=== PATIENT | female | born 1960 | race Caucasian/White ===

== ENCOUNTER → 2017-12-07 | Outpatient (CLI) | payer BC ==
[~2017-12-07] MED LIST: ACETAMINOPHEN-1 EAC1 PO; ACYCLOVIR 400400 MG PO; ADULT LOW DOSE81 MG PO; AUGMENTIN 875875 MG PO; AZITHROMYCIN 2250 MG PO; CALCIUM 500 +1 EAC4 PO; CENTANY30 GM TOP; CIPRO500 MG PO; CIPROFLOXACIN500 M3 GT; COLESTIPOL HCL1 G1 PO; COUMADIN 2 MG TA2 M1 PO; COUMADIN 3 MG TA3 M1 PO; COUMADIN 3 MG TA3 MG PO; COZAAR100 MG PO; DESIPRAMINE 50M50 M1 PO; DYAZIDE PO; FISH OIL 1,001000 MG PO; FLAGYL500 MG PO; HCTZ; HYDRALAZINE 2525 MG PO; HYDROCHLOROTHIA25 M2 PO; HYDROCODON-ACE1 EAC7 PO; HYDROCODONE-APA1 TA1 PO; IBUPROFEN 800800 M1 PO; LEVOXYL125 MCG PO; LEXAPRO; LEXAPRO20 MG PO; LIPITOR 20 MG T20 M1 PO; LIPITOR40 MG PO; LISINOPRIL20 MG PO; LISINOPRIL40 MG PO; LOPRESSOR PO; MEDROLDOSEPACK PO; NORCO 5-325 TA1 EACH PO; NORFLEX100 MG PO; NORVASC10 MG PO; NORVASC5 MG PO; OSCIMIN0.125 M1 PO; OZEMPIC0.25 MG/0. SUBQ; PEPCID40 MG PO; PERCOCET 5-3251 EACH PO; POTASSIUM20; PREDNISONE 20 M20 M1 PO; PREMARIN0.3 MG PO; PRINIVIL20 MG PO; PROMETHAZINE-C120 ML PO; PROPAFENONE 15150 MG PO; PROTONIX40 M2 PO; PROZAC; ROBAXIN 750 MG750 M1 PO; RYTHMOL; RYTHMOL SR325 MG PO; SAVELLA50 MG PO; SIMVASTATIN40 MG PO; SORINE 80 MG TA80 M1 PO; SORINE 80 MG TA80 MG PO; SPIRONOLACTONE50 MG PO; SYNTHROID PO; SYNTHROID112 MC1 PO; SYNTHROID125 MCG PO; TESSALON PERLE100 M1 PO; TOPROL XL25 MG PO; TRAMADOL 50 MG50 MG PO; TYLENOL EXTRA500 MG PO; ULTRAM 50MG TAB50 MG PO; VIBRAMYCIN 100100 M2 PO; WELLBUTRIN XL150 MG PO; XARELTO20 MG PO; ZOFRAN ODT4 MG PO; ZOFRAN4 MG PO
== END ==
LOC: M.MRI 11-26 16:08
DX: M47.26 Other spondylosis with radiculopathy, lumbar region (principal); M85.89 Other specified disorders of bone density and structure, multiple sites; M76.9 Unspecified enthesopathy, lower limb, excluding foot; N28.1 Cyst of kidney, acquired; Z78.0 Asymptomatic menopausal state

== ENCOUNTER 2018-01-23 20:36 | Emergency (ER) | payer BC ==
[~2018-01-23] VITALS: Ht 162.6 cm; Wt 114.3 kg
[~2018-01-23 20:36] MED LIST changes: -CENTANY30 GM TOP; -COLESTIPOL HCL1 G1 PO; -COZAAR100 MG PO; -HYDRALAZINE 2525 MG PO; -LEVOXYL125 MCG PO; -LEXAPRO20 MG PO; -NORVASC5 MG PO; -OSCIMIN0.125 M1 PO; -OZEMPIC0.25 MG/0. SUBQ; -PREDNISONE 20 M20 M1 PO; -PROPAFENONE 15150 MG PO; -ROBAXIN 750 MG750 M1 PO; -SPIRONOLACTONE50 MG PO; -SYNTHROID112 MC1 PO; -TYLENOL EXTRA500 MG PO; -VIBRAMYCIN 100100 M2 PO; -WELLBUTRIN XL150 MG PO; -XARELTO20 MG PO
[2018-01-23] MEDS ORDERED: HYDRALAZINE 2525 MG PO (20:49)
[2018-01-23] MEDS ORDERED: COLESTIPOL HCL1 G1 PO (20:49)
[2018-01-23] MEDS ORDERED: WELLBUTRIN XL150 MG PO (20:50)
[2018-01-23] MEDS ORDERED: COZAAR100 MG PO (20:50)
[2018-01-23] MEDS ORDERED: OSCIMIN0.125 M1 PO (20:50)
[2018-01-23] MEDS ORDERED: NORVASC5 MG PO (20:51)
[2018-01-23] MEDS ORDERED: LEXAPRO20 MG PO (20:51)
[2018-01-23] MEDS ORDERED: SORINE 80 MG TA80 MG PO (20:51)
[2018-01-23] MEDS ORDERED: LEVOXYL125 MCG PO (20:52)
[2018-01-23] MEDS ORDERED: SPIRONOLACTONE50 MG PO (20:52)
[2018-01-23] MEDS ORDERED: XARELTO20 MG PO (20:52)
[2018-01-23] MEDS ORDERED: HYDROCODON-ACE1 EAC7 PO (22:19)
[2018-01-23 22:30] VITALS: BP 148/82
[2018-07-05] MEDS ORDERED: SYNTHROID112 MC1 PO (13:14)
[2018-07-05] MEDS ORDERED: PROPAFENONE 15150 MG PO (13:15)
[2018-07-05] MEDS ORDERED: OZEMPIC0.25 MG/0. SUBQ (13:16)
[2018-07-05] MEDS ORDERED: TYLENOL EXTRA500 MG PO (13:17)
== END 2018-01-23 22:30 | disposition home or self-care (01) ==
LOC: M.ERS 20:36
DX: S80.12XA Contusion of left lower leg, initial encounter (principal); I48.91 Unspecified atrial fibrillation; K21.9 Gastro-esophageal reflux disease without esophagitis; I10 Essential (primary) hypertension; G47.30 Sleep apnea, unspecified; E05.90 Thyrotoxicosis, unspecified without thyrotoxic crisis or storm; Z90.711 Acquired absence of uterus with remaining cervical stump; Z90.49 Acquired absence of other specified parts of digestive tract; W18.39XA Other fall on same level, initial encounter; Y93.89 Activity, other specified; Y92.89 Other specified places as the place of occurrence of the external cause; Y99.8 Other external cause status

== ENCOUNTER 2018-02-02 19:28 | Emergency (ER) | payer BC ==
[~2018-02-02] VITALS: Ht 162.6 cm; Wt 119.8 kg
[~2018-02-02 19:28] MED LIST changes: +COLESTIPOL HCL1 G1 PO; +COZAAR100 MG PO; +HYDRALAZINE 2525 MG PO; +LEVOXYL125 MCG PO; +LEXAPRO20 MG PO; +NORVASC5 MG PO; +OSCIMIN0.125 M1 PO; +SPIRONOLACTONE50 MG PO; +WELLBUTRIN XL150 MG PO; +XARELTO20 MG PO
[2018-02-02] MEDS ORDERED: ROBAXIN 750 MG750 M1 PO (20:13)
[2018-02-02] MEDS ORDERED: NORCO 5-325 TA1 EACH PO (20:13)
[2018-02-02] MEDS ORDERED: PREDNISONE 20 M20 M1 PO (20:13)
[2018-02-02 20:31] VITALS: BP 184/102
[2018-07-05] MEDS ORDERED: SYNTHROID112 MC1 PO (13:14)
[2018-07-05] MEDS ORDERED: PROPAFENONE 15150 MG PO (13:15)
[2018-07-05] MEDS ORDERED: OZEMPIC0.25 MG/0. SUBQ (13:16)
[2018-07-05] MEDS ORDERED: TYLENOL EXTRA500 MG PO (13:17)
== END 2018-02-02 20:37 | disposition home or self-care (01) ==
LOC: M.ERS 19:28
DX: M54.42 Lumbago with sciatica, left side (principal); I48.91 Unspecified atrial fibrillation; K21.9 Gastro-esophageal reflux disease without esophagitis; I10 Essential (primary) hypertension; G47.30 Sleep apnea, unspecified; F32.9 Major depressive disorder, single episode, unspecified; E05.90 Thyrotoxicosis, unspecified without thyrotoxic crisis or storm; Z90.49 Acquired absence of other specified parts of digestive tract

== ENCOUNTER 2018-04-03 12:51 | Emergency (ER) | payer BC ==
[~2018-04-03] VITALS: Ht 162.6 cm; Wt 121.6 kg
[~2018-04-03 12:51] MED LIST changes: +PREDNISONE 20 M20 M1 PO; +ROBAXIN 750 MG750 M1 PO
[2018-04-03 13:09] LABS: URINE BILIRUBIN NEGATIVE (Negative); URINE BLOOD NEGATIVE (Negative); URINE CLARITY CLEAR; URINE COLOR YELLOW; URINE GLUCOSE-RANDOM NEGATIVE (Negative); URINE KETONES NEGATIVE (Negative); URINE LEUKOCYTES-REFLEX NEGATIVE (Negative); URINE NITRITE-REFLEX NEGATIVE (Negative); URINE PROTEIN NEGATIVE (Negative); URINE SPECIFIC GRAVITY 1.025 (1.005-1.030); URINE UROBILINOGEN 0.2 E.U./dl (0.2-1.0)
[2018-04-03 13:23] LABS: ABSOLUTE LYMPHOCYTES 1.6 thou/uL (0.8-5.3); ABSOLUTE MONOCYTES 0.5 thou/uL (0.0-1.2); ABSOLUTE NEUTROPHILS 5.2 thou/uL (1.6-8.1); BASOPHILS 0.6 %; EOSINOPHILS 0.3 %; HEMATOCRIT 42.8 % (37.0-47.0); LYMPHOCYTES 21.5 %; MCH 29.7 pg (26.0-34.0); MCHC 32.8 g/dL (28.0-37.0); MCV 90.7 fL (80.0-100.0); MONOCYTES 7.4 %; MPV 7.2 fl. (7.2-11.1); NUCLEATED RBCS 0 /100WBC; PLATELET COUNT* 283 thou/uL (150-400); POLYS 70.2 %; RBC 4.72 mil/uL (4.20-5.00); WBC 7.4 thou/uL (4.0-11.0)
[2018-04-03 13:32] LABS: ANION GAP 7 mmol/L (7-16); BUN 26 mg/dL (7-18); CHLORIDE 104 mmol/L (98-107); CO2 33 mmol/L (21-32); GLUCOSE 97 mg/dL (70-99); SODIUM 144 mmol/L (136-145)
[2018-04-03 13:39] LABS: ALBUMIN 3.7 g/dL (3.4-5.0); ALKALINE PHOSPHATASE 81 U/L (46-116); SGOT 13 U/L (15-37); SGPT 27 U/L (30-65); TOTAL BILIRUBIN 0.6 mg/dL (<0.1-1.0); TOTAL PROTEIN 6.9 g/dL (6.4-8.2); TROPONIN-I LEVEL <0.06 ng/mL (<0.06)
[2018-04-03 14:49] VITALS: BP 149/53
--- NOTE | 2018-04-03 18:06 | EKG ---
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 : 1960 Requested By: Karime Arizmendi Order Number: [id number] MD: Rolando Spears Measurements Intervals [place] Rate: 50 P: 11 NE: 167 QRS: -21 QRSD: 100 T: 63 QT: 459 QTc: 419 Interpretive Statements Sinus rhythm Abnormal R-wave progression, early transition LVH with secondary repolarization abnormality Compared to ECG 02/13/2017 17:27:37 Early repolarization now present Electronically Signed On 04-03-2018 18:06:30 CDT by Rolando Spears [email or web address] <ELECTRONICALLY SIGNED> By: Rolando Spears MD, [facility] 04/03/18 1806 1339 38 Rolando Spears MD, [facility] /EPI
[2018-07-05] MEDS ORDERED: SYNTHROID112 MC1 PO (13:14)
[2018-07-05] MEDS ORDERED: PROPAFENONE 15150 MG PO (13:15)
[2018-07-05] MEDS ORDERED: OZEMPIC0.25 MG/0. SUBQ (13:16)
[2018-07-05] MEDS ORDERED: TYLENOL EXTRA500 MG PO (13:17)
== END 2018-04-03 14:50 | disposition home or self-care (01) ==
LOC: M.ERS 12:51
PROVIDERS: Nurse Practitioner Family
DX: I10 Essential (primary) hypertension (principal); Z90.710 Acquired absence of both cervix and uterus

== ENCOUNTER 2018-08-03 05:49 | Emergency (ER) | payer BC ==
[~2018-08-03] VITALS: Ht 162.6 cm; Wt 106.1 kg
[~2018-08-03 05:49] MED LIST changes: +OZEMPIC0.25 MG/0. SUBQ; +PROPAFENONE 15150 MG PO; +SYNTHROID112 MC1 PO; +TYLENOL EXTRA500 MG PO
[2018-08-03 06:00] VITALS: BP 147/84
[2018-08-03] MEDS ORDERED: VIBRAMYCIN 100100 M2 PO (06:08)
[2018-08-03] MEDS ORDERED: CENTANY30 GM TOP (06:08)
== END 2018-08-03 06:15 | disposition home or self-care (01) ==
LOC: M.ERS 05:49
DX: S40.862A Insect bite (nonvenomous) of left upper arm, initial encounter (principal); Z90.711 Acquired absence of uterus with remaining cervical stump; Z98.890 Other specified postprocedural states; Z90.49 Acquired absence of other specified parts of digestive tract; W57.XXXA Bitten or stung by nonvenomous insect and other nonvenomous arthropods, initial encounter; Y93.89 Activity, other specified; Y92.89 Other specified places as the place of occurrence of the external cause; Y99.8 Other external cause status

== ENCOUNTER → 2018-11-08 | Outpatient (CLI) | payer BC ==
[~2018-11-08] MED LIST changes: +CENTANY30 GM TOP; +CYMBALTA30 MG PO; +FLECAINIDE ACET50 M1 PO; +METOPROLOL SUCC50 MG PO; +PRADAXA150 MG PO; +SYNTHROID125 MC1 PO; +VIBRAMYCIN 100100 M2 PO
== END ==
LOC: M.MRI 15:51
DX: S46.811A Strain of other muscles, fascia and tendons at shoulder and upper arm level, right arm, initial encounter (principal); M19.011 Primary osteoarthritis, right shoulder; X58.XXXA Exposure to other specified factors, initial encounter; Y93.89 Activity, other specified; Y92.89 Other specified places as the place of occurrence of the external cause; Y99.8 Other external cause status; Z98.890 Other specified postprocedural states

== ENCOUNTER → 2018-11-19 | Outpatient (CLI) | payer BC | LOC: M.MRI 15:59 | DX: M50.11 Cervical disc disorder with radiculopathy, high cervical region (principal); M48.02 Spinal stenosis, cervical region ==

== ENCOUNTER 2018-12-13 18:52 | Emergency (ER) | payer BC ==
[~2018-12-13] VITALS: Ht 162.6 cm; Wt 106.6 kg
[2018-12-13] MEDS ORDERED: KEFLEX500 M1 PO (19:12)
[2018-12-13] MEDS ORDERED: BACTRIM DS TAB1 EACH PO (19:12)
[2018-12-13] MEDS ORDERED: CENTANY30 GM TOP (19:12)
[2018-12-13] MEDS ORDERED: ACETAMINOPHEN-1 EAC1 PO (19:14)
[2018-12-13 19:25] VITALS: BP 156/82
== END 2018-12-13 19:25 | disposition home or self-care (01) ==
LOC: M.ERS 18:52
DX: R21 Rash and other nonspecific skin eruption (principal); I10 Essential (primary) hypertension; G47.33 Obstructive sleep apnea (adult) (pediatric); E66.9 Obesity, unspecified; Z68.41 Body mass index [BMI] 40.0-44.9, adult; I48.91 Unspecified atrial fibrillation; Z90.49 Acquired absence of other specified parts of digestive tract; Z90.710 Acquired absence of both cervix and uterus; Z91.040 Latex allergy status

== ENCOUNTER 2019-01-07 11:37 | Emergency (ER) | payer BC ==
[~2019-01-07] VITALS: Ht 162.6 cm; Wt 113.4 kg
[~2019-01-07 11:37] MED LIST changes: +BACTRIM DS TAB1 EACH PO; +KEFLEX500 M1 PO
[2019-01-07 11:51] LABS: ABSOLUTE EOSINOPHILS 0.1 thou/uL (0.0-0.7); ABSOLUTE LYMPHOCYTES 1.3 thou/uL (0.8-5.3); ABSOLUTE MONOCYTES 0.3 thou/uL (0.0-1.2); ABSOLUTE NEUTROPHILS 2.5 thou/uL (1.6-8.1); EOSINOPHILS 1.9 %; HEMATOCRIT 40.6 % (37.0-47.0); HEMOGLOBIN 13.3 gm/dL (12.0-15.0); LYMPHOCYTES 31.1 %; MCH 28.9 pg (26.0-34.0); MCHC 32.9 g/dL (28.0-37.0); MCV 87.9 fL (80.0-100.0); MONOCYTES 6.3 %; MPV 6.8 fl. (7.2-11.1); NUCLEATED RBCS 0 /100WBC; PLATELET COUNT* 233 thou/uL (150-400); POLYS 59.7 %; RBC 4.62 mil/uL (4.20-5.00); RDW-CV 14.7 % (10.5-14.5); WBC 4.3 thou/uL (4.0-11.0)
[2019-01-07 12:06] LABS: ANION GAP 7 mmol/L (7-16); APTT 26.6 Seconds (25.0-31.3); BUN 15 mg/dL (7-18); CALCIUM 9.2 mg/dL (8.5-10.1); CHLORIDE 106 mmol/L (98-107); CO2 34 mmol/L (21-32); CREATININE 0.8 mg/dL (0.6-1.3); GLUCOSE 111 mg/dL (70-99); POTASSIUM 3.5 mmol/L (3.5-5.1); PROTIME 9.9 Seconds (9.20-11.50); SODIUM 147 mmol/L (136-145); TROPONIN-I LEVEL <0.06 ng/mL (<0.06)
[2019-01-07 12:22] LABS: ALBUMIN 3.7 g/dL (3.4-5.0); ALKALINE PHOSPHATASE 79 U/L (46-116); SGOT 19 U/L (15-37); SGPT 27 U/L (30-65); TOTAL BILIRUBIN 0.4 mg/dL (<0.1-1.0); TOTAL PROTEIN 7.1 g/dL (6.4-8.2)
[2019-01-07 13:02] VITALS: BP 149/73
--- NOTE | 2019-01-07 16:01 | EKG ---
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 : 1960 Requested By: Bi Jha Order Number: [id number] MD: Owen Urena Measurements Intervals [place] Rate: 77 P: 15 [place]: 171 QRS: -31 QRSD: 102 T: 55 QT: 390 QTc: 442 Interpretive Statements Sinus rhythm Abnormal R-wave progression, late transition LVH with secondary repolarization abnormality Compared to ECG 04/03/2018 13:39:26 No significant changes Electronically Signed On 01-07-2019 16:01:10 CDT by Owen Urena [email or web address] <ELECTRONICALLY SIGNED> By: Owen Urena MD, [facility] 01/07/19 1601 1151 115 Owen Urena MD, [facility] /EPI
== END 2019-01-07 13:02 | disposition home or self-care (01) ==
LOC: M.ERS 11:37
PROVIDERS: Family Medicine
DX: R20.2 Paresthesia of skin (principal); R51 Headache; I48.91 Unspecified atrial fibrillation; I10 Essential (primary) hypertension; G47.33 Obstructive sleep apnea (adult) (pediatric); E66.9 Obesity, unspecified; Z68.41 Body mass index [BMI] 40.0-44.9, adult; Z90.711 Acquired absence of uterus with remaining cervical stump; Z91.040 Latex allergy status; Z98.890 Other specified postprocedural states

== ENCOUNTER → 2019-10-02 | Outpatient (CLI) | payer BC ==
[~2019-10-02] MED LIST changes: +CRESTOR20 MG PO; +MOBIC15 MG PO; +NORVASC5 M1 PO
--- NOTE | ~2019-10-02 | PAINCON ---
[address] [address] PAIN MANAGEMENT CONSULTATION Name: LAQUITA RAMSEY Room: [facility]#: [id number] Admission: 10/02/19 Attend Phys: Isadora Giraldo MD Discharge: Date of : 62 Report #: [id number] THIS REPORT FOR: //name// CC: Eleonora Giraldo DATE OF SERVICE: 10/02/2019 PRIMARY CARE PHYSICIAN: Eleonora James MD CHIEF COMPLAINT: Low back pain. HISTORY: The patient is a 59-year-old female who has been referred to the Pain Clinic because of back pain. The patient is experiencing pain in her low back area. Notes that the pain radiates down into her left hip at times. She has found that has been quite problematic. In 2018, she fell. She had back pain similar to this. She is unable to sleep at night. She is unable to engage in activities of daily living because of this. She is unable to sit comfortably at home in a chair or recliner. Has difficulty at work because of the chronic pain. ALLERGIES: No known drug allergies. LATEX. MEDICATIONS: Extra Strength Tylenol, levothyroxine 125 mcg total of 250 mcg daily, Pradaxa 150 mg b.i.d., metoprolol 50 mg daily, hydralazine 25 mg t.i.d., losartan 100 mg daily, spironolactone 50 mg, Ozempic 0.25 mg subcutaneous weekly. PAST MEDICAL HISTORY: 1. Atrial fibrillation. 2. Obstructive sleep apnea. 3. Hypothyroidism. 4. Hypertension. 5. Depression/anxiety. 6. Right carotid artery disease. 7. Heart murmur. 8. Irritable bowel syndrome. 9. Diverticulosis. 10. Osteopenia. 11. Degenerative joint disease with lumbar radicular history. 12. History of GI bleed from diverticulitis in 01/2017. PAST SURGICAL HISTORY: 1. . 2. [place] [address] PAIN MANAGEMENT CONSULTATION Name: LAQUITA RAMSEY Room: [facility].#: [id number] Admission: 10/02/19 Attend Phys: Isadora Giraldo MD Discharge: Date of : 62 Report #: [id number] 3. Plates in the left foot. 4. Right shoulder in 10/2014. 5. Cholecystectomy. 6. Tonsillectomy. 7. Lumpectomy of left breast. 8. Eye surgery. PAIN CLINIC ASSESSMENT AND PQRS: 1. History of osteoarthritis. The patient has been diagnosed with degenerative joint disease in the low back area. She is not being treated for rheumatoid arthritis. 2. Height 5 feet 4 inches, weight 257 pounds, BMI is 44. 3. Vital signs: Blood pressure 146/104, heart rate 68, respiratory rate 16, room air saturation is 95%. 4. Temperature 98.2. 5. Pain intensity 8/10. 6. Fall history: The patient has not fallen in the last 3 months. 7. Blood thinner: The patient is not taking a blood thinner at this juncture. 8. Hypertension: The patient is not taking an opioid medication on a regular basis. 9. Risk assessment tool, low for opioid use. 10. Recreational drug use: The patient denies. 11. Tobacco: The patient has never smoked. 12. Alcohol: The patient denies frequent use of alcoholic beverages. PHYSICAL EXAMINATION: GENERAL: The patient is a well-developed, well-nourished, somewhat obese white female. She is alert and oriented x 3. Her affect is appropriate. Speech is fluent. HEENT: Normocephalic, atraumatic. Extraocular eye muscles intact. Sclerae nonicteric. Mucous membranes are moist. Hearing within normal limits. NECK: Without adenopathy or JVD. LUNGS: Distant lung sounds given the patient's body habitus. ABDOMEN: Protuberant. MUSCULOSKELETAL: Upper extremity muscle strength judged to be 5/5 for the major muscle groups in the upper extremity. The patient has pain and discomfort in the lower portion of her back. Palpation in the area of the left posterior-superior iliac spine area does cause a reproduction and exacerbation of the patient's pain, which she is experiencing. IMPRESSION: 1. Exacerbation of myofascial pain in low back area. 2. Atrial fibrillation history. 3. Obesity. 4. Obstructive sleep apnea. 5. [place] [address] PAIN MANAGEMENT CONSULTATION Name: LAQUITA RAMSEY LISSA Room: [facility]#: [id number] Admission: 10/02/19 Attend Phys: Isadora Giradlo MD Discharge: Date of : 62 Report #: [id number] 6. Hypertension. 7. Depression/anxiety. 8. Irritable bowel syndrome. 9. Diverticulitis with history of gastrointestinal bleed. 10. Osteopenia. 11. Degenerative joint disease. RECOMMENDATIONS: We discussed treatment options with the patient. At this juncture, she is having pain and discomfort in the lower portion of her back. She is quite problematic. She is unable to get comfortable. She is unable to sleep without tossing and turning. She had trigger point injections in the past. These were quite beneficial. She recalls simply turning over in bed and felt a popping sensation. Since that time, she has had pain, which has been unrelenting. She has returned today with the hopes of undergoing an injection into the low back area to help decrease the pain and discomfort, which she is experiencing. Risks and benefits of the procedure were discussed. They include but are not limited to infection, worsening of pain, no improvement in pain, nerve damage, bleeding, and the patient elects to proceed. PROCEDURE NOTE: The patient was taken to the procedure area. She was then assisted in getting on the examination table. Her back was sterilely prepped with a chlorhexidine solution and allowed to dry. The area on the left hip was palpated. The patient vocalized that this indeed was the area where her pain was originating from. A skin wheal was placed at this area using 0.5% bupivacaine. A 22-gauge Chiba needle was then advanced into the area of the trigger point. Aspiration was negative. The patient states that this was the area where her pain was originating from. A total of 8 mL of 0.5% bupivacaine and 80 mg Depo-Medrol was injected. The patient tolerated the procedure well. She remained in the Pain Clinic for an appropriate amount of time. She will follow up in the future as needed. We would like to thank you for letting us participate in her care. We hope she continues to improve. The area was in the left posterior-superior iliac spine area near the latissimus dorsi and the gluteus fercho. By: 1437 1514N. Mateusz Giraldo MD /gopal
== END | disposition home or self-care (01) ==
LOC: M.PC 08:27
DX: M79.18 Myalgia, other site (principal); M54.5 Low back pain; I10 Essential (primary) hypertension; E03.9 Hypothyroidism, unspecified; I48.91 Unspecified atrial fibrillation; F32.9 Major depressive disorder, single episode, unspecified; F41.9 Anxiety disorder, unspecified; G47.33 Obstructive sleep apnea (adult) (pediatric); M85.80 Other specified disorders of bone density and structure, unspecified site; E66.01 Morbid (severe) obesity due to excess calories; M19.90 Unspecified osteoarthritis, unspecified site; Z98.890 Other specified postprocedural states; Z79.899 Other long term (current) drug therapy; Z68.41 Body mass index [BMI] 40.0-44.9, adult; Z79.01 Long term (current) use of anticoagulants; Z87.19 Personal history of other diseases of the digestive system; Z90.49 Acquired absence of other specified parts of digestive tract; Z90.710 Acquired absence of both cervix and uterus

== ENCOUNTER 2020-05-24 19:56 | Inpatient (IN) | payer BC ==
[~2020-05-24] VITALS: Ht 162.6 cm; Wt 120.7 kg
[2020-05-24 20:02] VITALS: BP 151/58
[2020-05-24 20:57] LABS: ABSOLUTE BASOPHILS 0.1 thou/uL (0.0-0.2); ABSOLUTE EOSINOPHILS 0.1 thou/uL (0.0-0.7); ABSOLUTE LYMPHOCYTES 1.8 thou/uL (0.8-5.3); ABSOLUTE MONOCYTES 0.5 thou/uL (0.0-1.2); ABSOLUTE NEUTROPHILS 5.8 thou/uL (1.6-8.1); EOSINOPHILS 0.9 %; HEMOGLOBIN 13.4 gm/dL (12.0-15.0); LYMPHOCYTES 21.9 %; MCH 29.3 pg (26.0-34.0); MCHC 33.5 g/dL (28.0-37.0); MCV 87.5 fL (80.0-100.0); MONOCYTES 6.5 %; MPV 6.6 fl. (7.2-11.1); NUCLEATED RBCS 0 /100WBC; PLATELET COUNT* 264 thou/uL (150-400); POLYS 69.7 %; RBC 4.57 mil/uL (4.20-5.00); RDW-CV 14.4 % (10.5-14.5); WBC 8.3 thou/uL (4.0-11.0)
[2020-05-24 21:11] LABS: PROTIME 9.9 Seconds (9.20-11.50)
[2020-05-24 21:18] LABS: CALCIUM 8.6 mg/dL (8.5-10.1); CREATININE 0.9 mg/dL (0.6-1.3); POTASSIUM 4.5 mmol/L (3.5-5.1)
[2020-05-24 21:22] LABS: ALBUMIN 3.4 g/dL (3.4-5.0); TOTAL BILIRUBIN 0.5 mg/dL (<0.1-1.0); TOTAL PROTEIN 6.4 g/dL (6.4-8.2)
[2020-05-24 23:30] VITALS: BP 138/66
[2020-05-25] VITALS: BP 145/65
[2020-05-25 07:30] VITALS: BP 175/85
[2020-05-25] MEDS ORDERED: ELIQUIS5 MG PO (11:19)
[2020-05-25 12:00] VITALS: BP 182/100
[2020-05-25 16:00] VITALS: BP 168/67
--- NOTE | 2020-05-25 16:07 | EKG ---
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 : 1960 Requested By: Maritza Falcon Order Number: [id number] MD: Lio Cabrera Measurements Intervals [place] Rate: 61 P: 40 HI: 164 QRS: -23 QRSD: 98 T: -37 QT: 431 QTc: 434 Interpretive Statements Sinus rhythm Abnormal R-wave progression, late transition Left ventricular hypertrophy Nonspecific T abnormalities, inferior leads Compared to ECG 01/07/2019 11:51:12 T-wave abnormality now present Early repolarization no longer present Electronically Signed On 05-25-2020 16:06:55 CDT by Lio Cabrera [email or web address] <ELECTRONICALLY SIGNED> By: Lio Cabrera MD, FAC 05/25/20 1606 01 01 Lio Cabrera MD, [facility] /EPI
[2020-05-25 18:28] LABS: URINE BILIRUBIN NEGATIVE (Negative); URINE BLOOD NEGATIVE (Negative); URINE CLARITY CLEAR; URINE COLOR YELLOW; URINE GLUCOSE-RANDOM NEGATIVE (Negative); URINE KETONES NEGATIVE (Negative); URINE LEUKOCYTES 1+ (Negative); URINE NITRITE NEGATIVE (Negative); URINE PROTEIN NEGATIVE (Negative); URINE SPECIFIC GRAVITY 1.025 (1.005-1.030); URINE UROBILINOGEN 0.2 E.U./dl (0.2-1.0)
[2020-05-25 19:39] LABS: MUCUS None Seen strn/LPF (None Seen); SQUAMOUS 4-10 Moderate /LPF (0-3)
[2020-05-25 19:40] LABS: BACTERIA None Seen /HPF (None Seen); CASTS None Seen /LPF (None Seen); CRYSTALS None Seen /LPF (None Seen); URINE WBC 6-15 Few /HPF (0-5)
[2020-05-25 19:41] LABS: URINE RBC None Seen /HPF (0-2)
[2020-05-25 20:00] VITALS: BP 173/70
[2020-05-26] VITALS: BP 157/86
[2020-05-26 04:00] VITALS: BP 185/89
[2020-05-26 04:52] LABS: ABSOLUTE EOSINOPHILS 0.1 thou/uL (0.0-0.7); ABSOLUTE LYMPHOCYTES 1.6 thou/uL (0.8-5.3); ABSOLUTE MONOCYTES 0.3 thou/uL (0.0-1.2); ABSOLUTE NEUTROPHILS 4.9 thou/uL (1.6-8.1); BASOPHILS 0.7 %; EOSINOPHILS 0.7 %; HEMATOCRIT 38.9 % (37.0-47.0); LYMPHOCYTES 23.2 %; MCH 29.4 pg (26.0-34.0); MCHC 33.5 g/dL (28.0-37.0); MCV 87.9 fL (80.0-100.0); MONOCYTES 4.8 %; MPV 6.6 fl. (7.2-11.1); NUCLEATED RBCS 0 /100WBC; PLATELET COUNT* 242 thou/uL (150-400); POLYS 70.6 %; RBC 4.42 mil/uL (4.20-5.00); RDW-CV 13.6 % (10.5-14.5); WBC 6.9 thou/uL (4.0-11.0)
[2020-05-26 05:08] LABS: ALBUMIN 3.2 g/dL (3.4-5.0); CALCIUM 8.1 mg/dL (8.5-10.1); CREATININE 0.8 mg/dL (0.6-1.3); POTASSIUM 4.8 mmol/L (3.5-5.1); TOTAL BILIRUBIN 0.6 mg/dL (<0.1-1.0); TOTAL PROTEIN 6.3 g/dL (6.4-8.2)
[2020-05-26 08:06] VITALS: BP 194/82
[2020-05-26 12:27] VITALS: BP 156/71
[2020-05-26] MEDS ORDERED: BENTYL 20 MG TA20 M1 PO (12:27)
[2020-05-26] MEDS ORDERED: NORVASC5 MG PO (13:45)
[2020-05-26] MEDS ORDERED: PROTONIX40 M2 PO (13:45)
[2020-05-26 14:01] VITALS: BP 156/71
[2020-05-26 14:33] VITALS: BP 156/71
== END 2020-05-26 15:45 | disposition home or self-care (01) | DRG 439 ==
LOC: M.ERS 19:56 → M.2W 22:39 → M.TBA-ER 22:39 → M.2W 23:05
PROVIDERS: Internal Medicine; Internal Medicine Gastroenterology; Personal Emergency Response Attendant; ADMIT Internal Medicine; ATTEND Internal Medicine
DX: K85.90 Acute pancreatitis without necrosis or infection, unspecified (principal); Z68.42 Body mass index [BMI] 45.0-49.9, adult; I10 Essential (primary) hypertension; G47.33 Obstructive sleep apnea (adult) (pediatric); E66.9 Obesity, unspecified; I48.0 Paroxysmal atrial fibrillation; E78.5 Hyperlipidemia, unspecified; E66.01 Morbid (severe) obesity due to excess calories; K58.9 Irritable bowel syndrome, unspecified; K29.70 Gastritis, unspecified, without bleeding; I16.0 Hypertensive urgency; Z20.828 Contact with and (suspected) exposure to other viral communicable diseases; Z90.711 Acquired absence of uterus with remaining cervical stump; Z90.49 Acquired absence of other specified parts of digestive tract; Z91.040 Latex allergy status; Z82.49 Family history of ischemic heart disease and other diseases of the circulatory system; Z83.3 Family history of diabetes mellitus; Z87.11 Personal history of peptic ulcer disease; Z87.891 Personal history of nicotine dependence

== ENCOUNTER → 2020-07-01 | Outpatient (CLI) | payer BC ==
[~2020-07-01] MED LIST changes: +BENTYL 20 MG TA20 M1 PO; +CELEBREX 200 M200 MG PO; +ELIQUIS5 MG PO
--- NOTE | 2020-07-21 13:58 | PAINCON ---
[address] [address] PAIN MANAGEMENT CONSULTATION Name: LAQUITA RAMSEY [facility] [id number] Admission: 07/01/20 Attend Phys: Isadora Giraldo MD Discharge: Date of : 62 Report #: [id number] THIS REPORT FOR: //name// cc: Mena Wall Robyn L. ARNP ~ CC: Isadora Wall NP DATE OF SERVICE: 07/01/2020 CHIEF COMPLAINT: Low back pain. HISTORY: The patient is a 60-year-old female who has been seen in Pain Clinic in the past because of low back pain. She has undergone injections in the low back area for myofascial pain. She rates her pain today as 8/10. This new complaint started recently. She is experiencing pain in the low back area with pain that is radiating down into her right leg. Describes it as a searing pain. It is constant. It involves the lower portion of her back. She would like to be evaluated and treated because of increasing discomfort. Notes that the pain started after the weather changed. ALLERGIES: LATEX. CURRENT MEDICATIONS: Tylenol Extra Strength, levothyroxine 1.25 mcg total of 250 mcg daily, Pradaxa 150 mg b.i.d., metoprolol 50 mg daily, hydralazine 25 mg t.i.d., losartan 100 mg daily, spironolactone 50 mg, Ozempic 0.25 mg subcutaneous weekly. PAIN CLINIC ASSESSMENT/PQRS: 1. History of osteoarthritis. The patient has been diagnosed with degenerative joint disease in the low back area. She is not being treated for rheumatoid arthritis. 2. Height 5 feet 4 inches, weight 218 pounds, BMI is 46. 3. Vital Signs: Blood pressure is 154/83, heart rate 59, respiratory rate 16, room air saturation 98%, temperature is 97.1. 4. Pain intensity, 8/10. 5. Fall history: The patient has not fallen in the last 3 months. 6. Blood thinner. The patient is not on a blood thinning medication at this juncture. 7. Hypertension. The patient is not taking opioids on a regular basis. The patient is being treated for hypertension. 8. Risk assessment tool, low for opioid use. 9. Recreational drug use: The patient denies. 10. Tobacco: The patient ____. 11. Alcohol: The patient denies frequent [place] [address] PAIN MANAGEMENT CONSULTATION Name: LAQUITA RAMSEY Room: [facility]#: [id number] Admission: 07/01/20 Attend Phys: Isadora Giraldo MD Discharge: Date of : 62 Report #: [id number] PHYSICAL EXAMINATION: GENERAL: The patient is a well-developed, well-nourished white somewhat obese female. She is alert and oriented x 3. Her affect is appropriate. Speech is fluent. HEENT: Normocephalic, atraumatic. Extraocular eye muscles intact. Sclerae nonicteric. Mucous membranes moist. The patient is wearing a facial covering. NECK: Without adenopathy or JVD. LUNGS: Distant, given the patient's body habitus. ABDOMEN: Nontender. MUSCULOSKELETAL: Muscle strength to the upper extremity judged to be 5/5 for the major muscle groups in the upper extremity. The patient has pain and discomfort in lower portion of her back. Palpation in the left posterior superior iliac spine area causes reproduction of pain and discomfort. IMPRESSION: 1. Exacerbation of myofascial pain in the low back area involving the right leg. 2. Atrial fibrillation history. 3. Obesity. 4. Obstructive sleep apnea. 5. Hypothyroidism. 6. Hypertension. 7. Depression/anxiety. 8. Irritable bowel syndrome. 9. Diverticulitis with history of gastrointestinal bleed. 10. Osteopenia. 11. Degenerative joint disease. RECOMMENDATIONS: We discussed treatment options with the patient. Risk and benefits of a trigger point injection were discussed. Possibility of infection were reviewed. Possibility of nerve damage was discussed. At this juncture, we will have him proceed with an injection. The risks and benefits have been ____ by the patient. She elects to proceed. She will monitor blood glucose level. PROCEDURE NOTE: The patient was taken to the procedure area. She was then assisted in getting on the examination table. Her back was sterilely prepped with a chlorhexidine solution. The patient was placed in a sitting position perpendicular to the table. The right posterior superior iliac spine area was identified. A 0.25% bupivacaine was used to anesthetize the skin. A 25-gauge Chiba needle was then advanced into the area of the trigger point. The patient states that this did reproduce her discomfort. Aspiration was negative. A total of 80 mg Depo-Medrol was injected with 8 mL of 0.5% bupivacaine. The patient tolerated the procedure well. She remained in the Pain Clinic for an appropriate amount of time. She will resume using her medications. Pain decreased from 8-3/10 at the time of discharge. [address] [place] [address] PAIN MANAGEMENT CONSULTATION Name: LAQUITA RAMSEY [id number] Admission: 07/01/20 Attend Phys: Isadora Giraldo MD Discharge: Date of : 62 Report #: [id number] We would like to thank you for letting us participate in her care. We hope she continues to improve. <ELECTRONICALLY SIGNED> By: Isadora Giraldo MD 07/21/20 1358 1424 1729N. Mateusz Giraldo MD /nt
== END | disposition home or self-care (01) ==
LOC: M.PC 10:43
PROVIDERS: ATTEND Anesthesiology Pain Medicine
DX: M54.5 Low back pain (principal); I48.91 Unspecified atrial fibrillation; M19.90 Unspecified osteoarthritis, unspecified site; I10 Essential (primary) hypertension; E03.9 Hypothyroidism, unspecified; E66.9 Obesity, unspecified; E78.5 Hyperlipidemia, unspecified; G47.33 Obstructive sleep apnea (adult) (pediatric); Z79.899 Other long term (current) drug therapy; Z91.040 Latex allergy status

== ENCOUNTER 2021-06-23 21:53 | Emergency (ER) | payer BC | END 2021-06-24 00:38 | disposition left against medical advice (07) | LOC: M.ERS 21:53 | DX: J34.89 Other specified disorders of nose and nasal sinuses (principal); Z53.21 Procedure and treatment not carried out due to patient leaving prior to being seen by health care provider ==